=== PATIENT | male | born 2000 | race African-American/Black ===

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

== ENCOUNTER 2021-03-28 17:49 | Emergency (ER) | payer OTHER ==
[~2021-03-28] VITALS: Ht 170.2 cm; Wt 74.0 kg
[~2021-03-28 17:49] MED LIST changes: +DEPAKOTE SPR125 MG PO; +RISPERDAL1 MG/ML PO
[2021-03-29 01:28] LABS: HEMATOCRIT 43.8 % (39.0-50.0); HEMOGLOBIN 14.8 g/dl (14.0-18.0); IMMATURE GRANULOCYTES 0.5 % (0.0-5.0); MEAN CELL VOLUME 91.8 fL CALC (80.0-100.0); MEAN CORPUSCULAR HGB CONC 33.8 g/dL CAL (32.0-36.0); NEUT# 11.11 thou/uL (1.82-7.42); RED BLOOD COUNT 4.77 mill/uL (4.70-6.10)
[2021-03-29 01:58] LABS: ALBUMIN 3.9 g/dL (3.2-5.0); ALKALINE PHOSPHATASE 49 u/l (38-126); ANION GAP 15 (6-22 (CALC)); BILIRUBIN, TOTAL 0.7 mg/dL (0.0-1.4); BUN 11 mg/dL (8-21); BUN/CREATININE RATIO 13 (12-20 (CALC)); CARBON DIOXIDE 19 mmol/l (22-30); CHLORIDE 108 mmol/l (95-108); CREATININE 0.9 mg/dL (0.7-1.3); GFR > 60 ML/MIN (>=60 (CALC)); GFR FOR AFR.AMER. > 60 ML/MIN (>=60 (CALC)); POTASSIUM 3.6 mmol/l (3.5-5.1); SGOT/AST 43 u/l (17-59); SODIUM 138 mmol/l (137-146); TOTAL PROTEIN 6.9 g/dL (6.3-8.2)
[2021-03-29] MEDS ORDERED: ZITHROMAX250 MG PO (02:15)
[2021-03-29 02:38] VITALS: BP 117/65
== END 2021-03-29 02:40 | disposition home or self-care (01) ==
LOC: ED 17:49
PROVIDERS: Emergency Medicine
DX: U07.1 COVID-19 (principal); G40.909 Epilepsy, unspecified, not intractable, without status epilepticus

== ENCOUNTER 2022-09-10 15:40 | Emergency (ER) | payer OTHER ==
[2022-09-10] VITALS (8 sets, daily range): BP systolic 127–140; BP diastolic 71–81
[~2022-09-10] VITALS: Ht 170.2 cm; Wt 77.0 kg
== END 2022-09-10 18:09 | disposition home or self-care (01) ==
LOC: ED 15:40
DX: S90.01XA Contusion of right ankle, initial encounter (principal); G40.909 Epilepsy, unspecified, not intractable, without status epilepticus; X58.XXXA Exposure to other specified factors, initial encounter; Z87.820 Personal history of traumatic brain injury